=== PATIENT | female | born 1940 | race Hispanic/Latino ===

== ENCOUNTER 2016-10-28 15:42 | Inpatient (IN) | payer MEDICARE ==
--- NOTE | 2016-10-28 17:08 | Emergency Department Report ---
Chief Complaint: Abdominal Pain Stated Complaint: NAUSEA/DIARRHEA/ABD PAIN Time Seen by Provider: 10/28/16 17:04 - HPI History of Present Illness: Patient was referred to the ED by Dr. Stoddard for evaluation of abdominal pain and N/V/D that started approximately three weeks ago. Patient was seen and treated in the ED two weeks ago, symptoms resolved until last night when symptoms returned. - ROS Review of Systems: all other systems are unremarkable except for documentation in HPI - Exam Vital Signs: Vital Signs 10/28/16 15:53 Temperature 99.4 F Pulse Rate 89 Respiratory 20 Rate Blood Pressure 136/74 O2 Sat by Pulse 99 Oximetry Physical Exam: Gen: well developed and nourished, NAD Abd: soft, non-distended, bowel sounds present, tenderness LLQ , no rebound, guarding or rigid MSE screening note: Focused history and physical exam performed. Due to findings the following was ordered: laboratory and radiology studies ordered ED Disposition for MSE Condition: Stable Instructions: Abdominal Pain (ED)
[2016-10-28 17:59] LABS: Hematocrit 41.7 % (30.3-42.9); Hemoglobin 14.1 gm/dl (10.1-14.3); Mean Corpuscular HGB Conc 34 % (30-34); Mean Corpuscular Hemoglobin 30 pg (28-32); Mean Corpuscular Volume 87 fl (79-97); Platelet Count 234 K/mm3 (140-440); Red Cell Distribution Width 14.7 % (13.2-15.2)
[2016-10-28 18:20] LABS: White Blood Count 26.1 K/mm3 (4.5-11.0)
[2016-10-28 18:24] LABS: Albumin 3.9 g/dL (3.9-5); Albumin/Globulin Ratio 1.5 %; BUN/Creatinine Ratio 9.16; Bilirubin,Total 1.1 mg/dL (0.1-1.2); Calcium 8.8 mg/dL (8.4-10.2); Chloride 100.8 mmol/L (98-107); Potassium 3.6 mmol/L (3.6-5.0); Total Protein 6.5 g/dL (6.3-8.2)
[2016-10-28] MEDS ORDERED: NACL ONE (19:49)
[2016-10-28] MEDS ORDERED: VALIUM IV ONE (19:51)
[2016-10-28] MEDS ORDERED: NACL 0.9% 1000 ML 1,000 ML IV ONE (19:51)
[2016-10-28] MEDS ORDERED: ZOFRAN IV ONE (19:51)
[2016-10-28] MEDS ORDERED: SUBLIMAZE IV ONE ×2 (19:52→20:00)
[2016-10-28 20:08] LABS: Basophils % (Manual) 0 % (0.0-1.8); Blastocytes % (Manual) 0 %; Eosinophils % (Manual) 0 % (0.0-4.3)
[2016-10-28 20:09] LABS: Diff Status Complete; Platelet Estimate Consistent w Auto; RBC Morphology Normal
[2016-10-28 22:09] LABS: Bilirubin,Urine NEG (Negative); Blood,Urine NEG (Negative); Ketones,Urine 20 mg/dL (Negative); Leukocyte Esterase,Urine NEG (Negative); Mucus,Urine FEW /HPF; Nitrite,Urine NEG (Negative); Protein,Urine <15 mg/dL mg/dL (Negative); Urobilinogen,Urine < 2.0 mg/dL (<2.0)
--- NOTE | 2016-10-28 22:11 | Cat Scan Report ---
FINAL REPORT PROCEDURE: CT ABDOMEN PELVIS W CON TECHNIQUE: Computerized axial tomography of the abdomen and pelvis was performed after the IV injection of iodinated nonionic contrast. HISTORY: fever, generalized abdominal pain, s/p colitis COMPARISON: No prior studies are available for comparison. FINDINGS: Lower Lung waddell: Small amount of dependent atelectasis is visualized. Lung bases otherwise are unremarkable. Upper Abdomen: The gallbladder is surgically absent. The intrahepatic ducts are not distended. The liver is otherwise unremarkable. The pancreas and adrenal glands are unremarkable. The spleen is not enlarged. Kidneys, Ureters and Urinary bladder: No abnormalities are seen. Retroperitoneum: Atherosclerotic changes are seen in the abdominal aorta. No aneurysm is visualized. Nonspecific subcentimeter lymph nodes are seen in the retroperitoneum. No pathologically enlarged lymph nodes are identified. Bowel: Wall thickening is again visualized in the rectum and the sigmoid colon. This also involves the descending colon and now the transverse colon and right side of the colon. I cannot exclude pseudomembranous colitis given the extent of the abnormality. No evidence of bowel obstruction or ascites. There is no free intraperitoneal gas. Mild diverticulosis also seen in the sigmoid colon. Reproductive organs: Uterus is surgically absent. No abnormal adnexal masses are seen. Other: None IMPRESSION: Persistent wall thickening seen left side of the colon. This is now progressed and also involves the remainder of the transverse colon and the right side of the colon. Given the extent and progression suggest pseudomembranous colitis. Mild sigmoid diverticulosis. Prior cholecystectomy and hysterectomy.
[2016-10-28] MEDS ORDERED: VANCOMYCIN PO ONE (23:30)
[2016-10-28] MEDS ORDERED: BABY ASPIRIN PO ONE (23:34)
--- NOTE | 2016-10-28 23:34 | Emergency Department Report ---
HPI - General Chief Complaint: Abdominal Pain Time Seen by Provider: 10/28/16 19:51 - HPI HPI: The patient is a 75-year-old female who presents for evaluation of abdominal pain. The patient reports generalized acute abdominal pain since 1 AM last night, severe, not out of 10 in severity, sharp and squeezing in quality, and is exacerbated with straining secondary to bowel movements. She shares that she has also experienced multiple episodes of loose watery stools. She states that she was diagnosed with colitis 2 weeks ago for similar symptoms, and she was started on ciprofloxacin. The patient denies fever, chills, night sweats, blood in the stool, dark tarry stool, dysuria, hematuria, flank pain, genital discharge, inability to pass flatus. ED Past Medical Hx - Medications Home Medications: Home Medications Medication Instructions Recorded Confirmed Last Taken Type Canagliflozin [Invokana] 300 mg PO DAILY 10/29/16 10/29/16 10/28/16 History Olmesartan (Nf) [Benicar (Nf)] 20 mg PO QDAY 10/29/16 10/29/16 10/28/16 History ED Review of Systems ROS: Stated complaint: NAUSEA/DIARRHEA/ABD PAIN Other details as noted in HPI Constitutional: denies: fever ENT: denies: throat or neck pain Respiratory: denies: cough, shortness of breath Cardiovascular: denies: chest pain Endocrine: denies unexplained weight loss or gain Gastrointestinal: reports abdominal pain, nausea Genitourinary: denies: dysuria Musculoskeletal: denies: leg swelling Skin: denies: rash Neurological: denies: headache Hematological/Lymphatic: denies: easy bleeding or easy bruising Psych: denies sadness or hopelessness Physical Exam - Physical Exam Vital Signs: Vital Signs 10/28/16 10/28/16 10/28/16 15:53 19:49 20:35 Temperature 99.4 F 99.3 F Pulse Rate 89 80 Respiratory 20 16 14 Rate Blood Pressure 136/74 Blood Pressure 114/44 [Left] O2 Sat by Pulse 99 99 97 Oximetry Physical Exam: General: well-nourished, well-developed, no acute distress Head: Normocephalic, atraumatic Eyes: normal sclera ENT: Mucous membranes are pale and dry Neck: trachea midline, neck supple, No neck stiffness, no cervical adenopathy Respiratory: Breath sounds equal bilaterally, no wheezing, rales, or rhonchi Cardio: S1 and S2 present, no murmurs, rubs, gallops, capillary refill is delayed Abdomen: Normoactive bowel sounds, soft abdomen, generalized tenderness to palpation present, no rigidity, no guarding or rebound tenderness Chest WALL/Back: No tenderness to palpation of the chest wall, no CVA tenderness with percussion Musc: No pitting edema Skin: No rash Neuro: no facial drooping, normal speech Psych: Normal affect ED Course Vital Signs 10/28/16 10/28/16 10/28/16 15:53 19:49 20:35 Temperature 99.4 F 99.3 F Pulse Rate 89 80 Respiratory 20 16 14 Rate Blood Pressure 136/74 Blood Pressure 114/44 [Left] O2 Sat by Pulse 99 99 97 Oximetry ED Medical Decision Making - Lab Data Result diagrams: 10/28/16 17:46 10/28/16 17:46 - Medical Decision Making The patient was seen and examined by myself. The patient is placed on a manager monitoring and continuous pulse ox. On initial evaluation, the patient was found to be in no distress. Evaluation orders are placed. IV access is established and the patient is given 1 L normal saline fluid bolus, Zofran for nausea, and IV fentanyl for pain. Lab results revealed leukocytosis, WBC 26, and otherwise labs were non- concerning including hemoglobin, hematocrit, electrolytes, renal function, LFTs , lipase, and urinalysis. CAT scan of the abdomen revealed bowel wall thickening of the descending colon, worsening spreading to the sigmoid colon compared to previous CAT scan, and consistent with psuedomembranous colitis. The patient is administered vancomycin for treatment of suspected severe pseudomembranous colitis. The on-call hospitalist service was contacted. They agreed to admit the patient for further treatment and close monitoring. The ED admit order was placed. The patient was admitted in guarded condition. Critical care attestation.: If time is entered above; I have spent that time in minutes in the direct care of this critically ill patient, excluding procedure time. ED Disposition Clinical Impression: Pseudomembranous colitis, Dehydration, Acute generalized abdominal pain Sepsis Qualifiers: Sepsis type: sepsis due to unspecified organism Qualified Code(s): A41.9 - Sepsis, unspecified organism Disposition: OP ADMITTED IP TO THIS HOSP Is pt being admited?: Yes Does the pt Need Aspirin: Yes Condition: Stable Instructions: Abdominal Pain (ED) Referrals: HUYEN JASSO MD [Primary Care Provider] - 3-5 Days Time of Disposition: 22:34
[2016-10-29] MEDS ORDERED: TYLENOL PO PRN (00:41)
--- NOTE | 2016-10-29 00:48 | History and Physical Report ---
History of Present Illness Date of examination: 10/29/16 Chief complaint: Diarrhea History of present illness: Patient is a 75-year-old woman with a history of type 2 diabetes mellitus and hypertension who is currently being treated for infectious bacterial colitis with Cipro and Flagyl by Dr. Stoddard who developed worsening severe constant leaking diarrhea that started couple days ago associated with subjective fevers and chills and diffuse lower crampy intermittent nonradiating abdominal pains associated with nausea without vomiting. She took the Cipro for 10 days. Patient denies any chest pain, shortness breath, no cough, severe headaches. Medications and Allergies Allergies Allergy/AdvReac Type Severity Reaction Status Date / Time Penicillins Allergy Swelling Unverified 09/11/14 10:07 codeine AdvReac Seizure Unverified 09/11/14 10:08 Home Medications Medication Instructions Recorded Confirmed Last Taken Type Canagliflozin [Invokana] 300 mg PO DAILY 10/29/16 10/29/16 10/28/16 History Olmesartan (Nf) [Benicar (Nf)] 20 mg PO QDAY 10/29/16 10/29/16 10/28/16 History Active Meds: Active Medications Acetaminophen (Tylenol) 650 mg PO Q6H PRN PRN Reason: Non Cardiac Pain or Temp>100.5 Enoxaparin Sodium (Lovenox) 40 mg SUB-Q QDAY VINNY Metronidazole (Flagyl 500 Mg/100 Ml) 100 mls @ 100 mls/hr IV Q8HR VINNY Sodium Chloride (Nacl 0.9% 1000 Ml) 1,000 mls @ 100 mls/hr IV DIRECT VINNY Miscellaneous Medication (Canagliflozin [Invokana]) 300 mg PO DAILY VINNY Miscellaneous Medication (Olmesartan (Nf)) 20 mg PO QDAY VINNY Ondansetron HCl (Zofran) 4 mg IV Q4H PRN PRN Reason: Nausea And Vomiting Review of Systems All systems: negative (as HPI and all other ROS reviewed and negative.) Exam - Physical Exam Narrative exam: GEN: WDWN, NAD, AWAKE, ALERT, ORIENTATED 3 HEENT: NCAT, PERRL, EOMI, OP CLEAR NECK: SUPPLE, NO THYROMEGALY, NO JVD, NO LAD CVS: RRR, NORMAL S1S2 LUNGS/CHEST: CTA B, NORMAL CHEST EXPANSION B, GOOD AIR ENTRY B ABD: SOFT, NONDISTENDED, SUPRAPUBIC AND RIGHT QUADRANT TENDERNESS GBS, NO REBOUND OR GUARDING EXT/SKIN: NO SIGNIFICANT EDEMA OR RASH, mucous membranes dry MSK: FROM X 4 EXTREMITIES NEURO: CN 2-12 GROSSLY INTACT, NO FOCAL DEFICITS PSY: CALM - Constitutional Vitals: Temp Pulse Resp BP Pulse Ox 99.3 F 76 14 122/64 100 10/28/16 19:49 10/29/16 00:02 10/29/16 00:02 10/29/16 00:02 10/29/16 00:02 Results - Labs CBC & Chem 7: 10/28/16 17:46 10/28/16 17:46 Labs: Abnormal lab results 10/28/16 10/28/16 Range/Units 17:46 17:46 WBC 26.1 H (4.5-11.0) K/mm3 Seg Neuts % (Manual) 93.0 H (40.0-70.0) % Lymphocytes % (Manual) 4.0 L (13.4-35.0) % Seg Neutrophils # Man 24.3 H (1.8-7.7) K/mm3 Lymphocytes # (Manual) 1.0 L (1.2-5.4) K/mm3 Glucose 139 H (65-100) mg/dL Assessment and Plan Patient is a 75-year-old woman with a history of type 2 diabetes mellitus and hypertension who was treated for infectious bacterial colitis with Cipro and Flagyl by Dr. Stoddard who developed worsening severe constant leaking diarrhea that started couple days ago associated with subjective fevers, chills and diffuse lower crampy intermittent nonradiating abdominal pains associated with nausea without vomiting. He took the Cipro for 10 days. Patient denies any chest pain, shortness breath, no cough, severe headaches. CT abdomen and pelvis with IV contrast, 10/28/2016 : Persistent wall thickening seen in the left colon. This is new progressed and also falls remainder of the transverse colon and right sided colon. Given the extent and progression suggests pseudomembranous colitis, mild sigmoid diverticulosis, prior cholecystectomy and hysterectomy. 1. Early sepsis due to colitis: Antibiotics, IV fluids 2. Suspected pseudomembrane colitis: Treat with IV Flagyl 3. Type 2 diabetes mellitus, chronic: Add sliding-scale insulin 4. Hypertension, chronic: Continue to manage 5. DVT prophylaxis: SCDs and subcutaneous Lovenox Full code Disposition: Inpatient care
[2016-10-29] MEDS ORDERED: D50W (25GM) IV PRN (00:51)
--- NOTE | 2016-10-29 01:50 | Admit Criteria Form ---
Admission Criteria Documentation: ABDOMINAL PAIN Clinical Indications for Admission to Inpatient Care (Place 'X' for any and all applicable criteria): Admission is indicated for ANY ONE of the following(1)(2)(3)(4)(5): [X ]I. Inpatient admission required rather than observation care (Also use Abdominal Pain: Observation Care, as appropriate) because of ANY ONE of the following: [ ]a) Severe pain requiring acute inpatient management [X ]b) Identification of etiology/finding that requires inpatient care (eg, aortic dissection, free air) [ ]c) Absent bowel sounds with complete ileus(6) [ ]d) Suspected toxic megacolon [ ]e) Severe electrolyte abnormalities requiring inpatient care [ ]f) High fever or infection requiring inpatient admission as indicated by ANY ONE of following(7)(8): [ ] i) Appropriate outpatient or observational care antimicrobial treatment unavailable, not effective, or not feasible [ ] ii) Documented bacteremia [ ] iii) Temperature > 104.9 degrees F (oral) [ ] iv) T >103.1 F (oral) or < 96.8 F(rectal) that does not respond to all emergency treatment measures [ ]g) Signs of intestinal obstruction [B] [ ]h) Hemodynamic instability [ ]i) IV fluid to replace significant ongoing losses (greater than 3 L/m2 per day) (12)(13) [ ]j) Percutaneous or open drainage (eg, abscess, biliary tract ) procedures [ ]k) Parenteral nutrition regimen that must be implemented on inpatient basis [ ]l) Other condition,treatment or monitoring requiring inpatient admission. [ ]II. Peritoneal signs present [ ]III. Surgery needed that cannot be performed on an ambulatory basis. [ ]IV. Evaluation requires patient to not eat or drink for extended period ( eg, more than 24 hours). [ ]V. Contraindications and/or Inappropriate clinical situations for Observational Care in patients with abdominal pain, when ANY ONE of the following is required: [ ]a) Thorough evaluation is required to prevent catastrophic events due to delays in diagnosing (e.g.Mesenteric ischemia) 1,3 [ ]b) Patient with severe pathology or with chronic symptoms unlikely to improve in the ED stay (3) [X ]. General contraindications and/or Inappropriate clinical situations for Observational Care in patients with abdominal pain, when ANY ONE of the following is required: [X ]a) Prediction of prolongation of LOS based on ANY ONE of the following may be considered as a contraindication for observational care 2, 3, 4, 5, 6, 7, 8, 9, 10, 11 [X ]i) Age > 65 yrs. [ ]ii) Patient arriving by ambulance [ ]iii) Patient with high acuity [ ]iv) Patient requiring vital sign monitoring [ ]v) Patient on IV medication [ ]b) Systolic blood pressures 180mmHg 3,12 [ ]c) Patient with altered mental status including delirium and other alteration of consciousness, (3) [ ]d) Patient whose discharge disposition will be to a fpc home or rehabilitation home should not be managed in Emergency Department Observation Unit. CMS rule requires 3 days hospital stay before such placement.3,13 [ ]e) Patient with failure to thrive due to broad array of etiologies 3,16,17 [ ]f) Inability to ambulate 3,14 Extended stay beyond goal length of stay may be needed for(2)(3): [ ]a) Persistent abdominal pain with suspected intra-abdominal process [ ]b) Diagnosed condition requiring continued stay (e.g., pancreatitis, complicated diverticulitis) [ ]c) Surgery (e.g., colectomy) The original [email or web address] content created by [employer] has been revised. The portions of the content which have been revised are identified through the use of italic text or in bold, and [facility] has neither reviewed nor approved the modified material.All other unmodified content is copyright [email or web address]. Please see references footnoted in the original [facility] edition 2016 Admission Criteria Met: Yes
[2016-10-29] MEDS: FLAGYL 500 MG/100 ML 100 ML IV SCH ×2 (02:34→11:15)
[2016-10-29 06:19] LABS: Hematocrit 36.6 % (30.3-42.9); Hemoglobin 12.3 gm/dl (10.1-14.3); Mean Corpuscular HGB Conc 34 % (30-34); Mean Corpuscular Hemoglobin 30 pg (28-32); Mean Corpuscular Volume 89 fl (79-97); Platelet Count 195 K/mm3 (140-440); Red Blood Count 4.13 M/mm3 (3.65-5.03); White Blood Count 18.6 K/mm3 (4.5-11.0)
[2016-10-29 06:39] LABS: Calcium 8.1 mg/dL (8.4-10.2); Chloride 105.2 mmol/L (98-107); Potassium 3.4 mmol/L (3.6-5.0)
[2016-10-29] MEDS: NOVOLOG SUB-Q SCH ×3 (08:17→18:36)
[2016-10-29] MEDS ORDERED: NON-FORMULARY (Canagliflozin [Invokana] 300 MG) PO SCH (10:00)
[2016-10-29] MEDS: NACL 0.9% 1000 ML 1,000 ML IV SCH (11:15)
[2016-10-29] MEDS: COZAAR PO SCH (11:15)
[2016-10-29] MEDS: ZOFRAN IV PRN (14:12)
--- NOTE | 2016-10-29 17:02 | Event Note ---
Date: 10/29/16 Patient is admitted for pseudomembranous colitis. She is on Flagyl. GI consult is placed. Patient is doing well.
--- NOTE | 2016-10-29 21:16 | Gastroenterology Consultation ---
History of Present Illness - Reason for Consult Consult date: 10/29/16 diarrhea, colitis Requesting physician: RAMON GARCIA - History of Present Illness Ms Oconnor is a 75 yo female who presents with worsening lower abdominal cramping and diarrhea x 3 weeks. She was initially started on cipro/flagyl as outpatient 3 weeks ago for suspected infectious colitis. She was having 5+ bm' s at the time. She completed 1 week of treatment with mild improvement in symptoms, but has worsened over the last 2 days. She has cramp like lower abdominal pain which waxes and wanes. She had significant/numerous diarrhea episodes yesterday and today. CT scan was performed showing extensive colitis suspicious for pseudomembrane colitis. Past History Past Medical History: diabetes, hypertension Past Surgical History: appendectomy, cholecystectomy Social history: no significant social history Family history: no significant family history Medications and Allergies Allergies Allergy/AdvReac Type Severity Reaction Status Date / Time Penicillins Allergy Swelling Verified 10/29/16 10:09 promethazine HCl Allergy Unknown Verified 10/29/16 10:09 [From Phenergan] codeine AdvReac Seizure Verified 10/29/16 10:09 Home Medications Medication Instructions Recorded Confirmed Last Taken Type Canagliflozin [Invokana] 300 mg PO DAILY 10/29/16 10/29/16 10/28/16 History Olmesartan (Nf) [Benicar (Nf)] 20 mg PO QDAY 10/29/16 10/29/16 10/28/16 History Active Meds: Active Medications Acetaminophen (Tylenol) 650 mg PO Q6H PRN PRN Reason: Non Cardiac Pain or Temp>100.5 Dextrose (D50w (25gm)) 50 ml IV PRN PRN PRN Reason: Hypoglycemia Enoxaparin Sodium (Lovenox) 40 mg SUB-Q QDAY VINNY Metronidazole (Flagyl 500 Mg/100 Ml) 100 mls @ 100 mls/hr IV Q8H VINNY Last Admin: 10/29/16 11:15 Dose: 100 mls/hr Sodium Chloride (Nacl 0.9% 1000 Ml) 1,000 mls @ 100 mls/hr IV DIRECT VINNY Last Admin: 10/29/16 11:15 Dose: 100 mls/hr Insulin Aspart (Novolog) 0 units SUB-Q ACHS VINNY PRN Reason: Protocol Last Admin: 10/29/16 18:36 Dose: Not Given Losartan Potassium (Cozaar) 50 mg PO QDAY [facility] Last Admin: 10/29/16 11:15 Dose: Not Given Miscellaneous Medication (Canagliflozin [Invokana]) 300 mg PO DAILY [facility] Last Admin: 10/29/16 12:19 Dose: Not Given Ondansetron HCl (Zofran) 4 mg IV Q4H PRN PRN Reason: Nausea And Vomiting Last Admin: 10/29/16 14:12 Dose: 4 mg Vancomycin HCl (Vancomycin) 250 mg PO Q6HR [facility] Review of Systems - Review of Systems All systems: negative Constitutional: weight loss Gastrointestinal: nausea Exam - Constitutional Vital Signs: Temp Pulse Resp BP Pulse Ox 98.2 F 70 20 121/59 99 10/29/16 18:00 10/29/16 18:00 10/29/16 18:00 10/29/16 18:00 10/29/16 18:00 General appearance: no acute distress - EENT Eyes: PERRL, EOM intact ENT: hearing intact - Respiratory Respiratory effort: normal Respiratory: bilateral: CTA - Cardiovascular Rhythm: regular Heart Sounds: Present: S1 & S2 Extremities: No edema, Full ROM - Gastrointestinal General gastrointestinal: Present: soft (mild lower quadrant ttp, no rebound/ guarding), non-distended, normal bowel sounds - Neurologic Neurological: alert and oriented x3 - Psychiatric Psychiatric: appropriate mood/affect - Labs CBC & Chem 7: 10/29/16 05:44 10/29/16 05:44 Lab Results: Laboratory Results - last 24 hr 10/29/16 10/29/16 10/29/16 05:44 05:44 08:08 WBC 18.6 H RBC 4.13 Hgb 12.3 Hct 36.6 MCV 89 MCH 30 MCHC 34 RDW 15.0 Plt Count 195 Sodium 144 Potassium 3.4 L Chloride 105.2 Carbon Dioxide 24 Anion Gap 18 BUN 12 Creatinine 1.0 Estimated GFR 54 BUN/Creatinine Ratio 12.00 Glucose 101 H POC Glucose 93 Calcium 8.1 L 10/29/16 10/29/16 11:11 17:57 WBC RBC Hgb Hct MCV MCH MCHC RDW Plt Count Sodium Potassium Chloride Carbon Dioxide Anion Gap BUN Creatinine Estimated GFR BUN/Creatinine Ratio Glucose POC Glucose 135 H 134 H Calcium - Imaging CT Scan: report reviewed Assessment and Plan colitis with diarrhea - suspect infectious, with high suspicion for c diff given CT findings, high wbc count, and recent antibiotic use. Would categorize as severe c diff given CT findings and abdominal pain. Will start po vanc, cont IV flagyl, monitor abdominal exam and labs.
[2016-10-30] MEDS: NACL 0.9% 1000 ML 1,000 ML IV SCH ×2 (00:13→12:00)
[2016-10-30] MEDS: VANCOMYCIN PO SCH ×5 (00:16→18:28)
[2016-10-30] MEDS: NOVOLOG SUB-Q SCH ×4 (00:17→17:32)
[2016-10-30] MEDS: FLAGYL 500 MG/100 ML 100 ML IV SCH ×4 (00:34→18:29)
[2016-10-30] MEDS: LOVENOX SUB-Q SCH ×2 (00:38→10:00)
[2016-10-30 07:42] LABS: Basophils % (Auto) 0.9 % (0.0-1.8); Eosinophils % (Auto) 2.8 % (0.0-4.3); Hematocrit 35.8 % (30.3-42.9); Hemoglobin 12.2 gm/dl (10.1-14.3); Mean Corpuscular HGB Conc 34 % (30-34); Mean Corpuscular Hemoglobin 30 pg (28-32); Mean Corpuscular Volume 87 fl (79-97); Platelet Count 193 K/mm3 (140-440); Red Blood Count 4.13 M/mm3 (3.65-5.03); Red Cell Distribution Width 14.8 % (13.2-15.2); White Blood Count 7.3 K/mm3 (4.5-11.0)
[2016-10-30 07:57] LABS: Anion Gap 16 mmol/L; Blood Urea Nitrogen 8 mg/dL (7-17); Calcium 7.7 mg/dL (8.4-10.2); Carbon Dioxide 23 mmol/L (22-30); Chloride 109.2 mmol/L (98-107); Glucose 101 mg/dL (65-100); Potassium 3.2 mmol/L (3.6-5.0); Sodium 145 mmol/L (137-145)
--- NOTE | 2016-10-30 08:05 | Progress Note ---
Assessment and Plan Assessment and plan: Severe C. difficile with pseudomembranous colitis - Patient is on IV Flagyl and by mouth vancomycin - Patient showed improvement - GI consult appreciated - We will follow closely DVT prophylaxis - Lovenox GI prophylaxis - PPI Disposition - Continue inpatient care History Interval history: Patient diarrhea and abdominal pain is getting better. Hospitalist Physical - Physical exam Narrative exam: Not in cardiopulmonary distress. The patient appeared well nourished and normally developed. Vital signs as documented. Head exam is unremarkable. No scleral icterus . Neck is without jugular venous distension, thyromegaly, or carotid bruits. Lungs are clear to auscultation. Cardiac exam reveals regular rate and Rhythm. First and second heart sounds normal. No murmurs, rubs or gallops. Abdominal exam reveals normal bowel sounds, no masses, no organomegaly and no aortic enlargement. Extremities are nonedematous and both femoral and pedal pulses are normal. 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 No focal weakness. - Constitutional Vitals: Temp Pulse Resp BP Pulse Ox 98.5 F 73 18 115/58 97 10/29/16 22:34 10/29/16 22:34 10/29/16 22:34 10/29/16 22:34 10/29/16 22:34 Results - Labs CBC & Chem 7: 10/30/16 06:58 10/30/16 06:58 Labs: Laboratory Last Values WBC 7.3 K/mm3 (4.5-11.0) 10/30/16 06:58 RBC 4.13 M/mm3 (3.65-5.03) 10/30/16 06:58 Hgb 12.2 gm/dl (10.1-14.3) 10/30/16 06:58 Hct 35.8 % (30.3-42.9) 10/30/16 06:58 MCV 87 fl (79-97) 10/30/16 06:58 MCH 30 pg (28-32) 10/30/16 06:58 MCHC 34 % (30-34) 10/30/16 06:58 RDW 14.8 % (13.2-15.2) 10/30/16 06:58 Plt Count 193 K/mm3 (140-440) 10/30/16 06:58 Lymph % (Auto) 16.9 % (13.4-35.0) 10/30/16 06:58 [place] % (Auto) 8.9 % (0.0-7.3) H 10/30/16 06:58 Eos % (Auto) 2.8 % (0.0-4.3) 10/30/16 06:58 Baso % (Auto) 0.9 % (0.0-1.8) 10/30/16 06:58 Lymph # 1.2 K/mm3 (1.2-5.4) 10/30/16 06:58 [place] # 0.7 K/mm3 (0.0-0.8) 10/30/16 06:58 Eos # 0.2 K/mm3 (0.0-0.4) 10/30/16 06:58 Baso # 0.1 K/mm3 (0.0-0.1) 10/30/16 06:58 Add Manual Diff Complete 10/28/16 17:46 Total Counted 100 10/28/16 17:46 Seg Neutrophils % 70.5 % (40.0-70.0) H 10/30/16 06:58 Seg Neuts % (Manual) 93.0 % (40.0-70.0) H 10/28/16 17:46 Band Neutrophils % 0 % 10/28/16 17:46 Lymphocytes % (Manual) 4.0 % (13.4-35.0) L 10/28/16 17:46 Reactive Lymphs % (Man) 0 % 10/28/16 17:46 Monocytes % (Manual) 3.0 % (0.0-7.3) 10/28/16 17:46 Eosinophils % (Manual) 0 % (0.0-4.3) 10/28/16 17:46 Basophils % (Manual) 0 % (0.0-1.8) 10/28/16 17:46 Metamyelocytes % 0 % 10/28/16 17:46 Myelocytes % 0 % 10/28/16 17:46 Promyelocytes % 0 % 10/28/16 17:46 Blast Cells % 0 % 10/28/16 17:46 Nucleated RBC % Not Reportable 10/28/16 17:46 Seg Neutrophils # 5.2 K/mm3 (1.8-7.7) 10/30/16 06:58 Seg Neutrophils # Man 24.3 K/mm3 (1.8-7.7) H 10/28/16 17:46 Band Neutrophils # 0.0 K/mm3 10/28/16 17:46 Lymphocytes # (Manual) 1.0 K/mm3 (1.2-5.4) L 10/28/16 17:46 Abs React Lymphs (Man) 0.0 K/mm3 10/28/16 17:46 Monocytes # (Manual) 0.8 K/mm3 (0.0-0.8) 10/28/16 17:46 Eosinophils # (Manual) 0.0 K/mm3 (0.0-0.4) 10/28/16 17:46 Basophils # (Manual) 0.0 K/mm3 (0.0-0.1) 10/28/16 17:46 Metamyelocytes # 0.0 K/mm3 10/28/16 17:46 Myelocytes # 0.0 K/mm3 10/28/16 17:46 Promyelocytes # 0.0 K/mm3 10/28/16 17:46 Blast Cells # 0.0 K/mm3 10/28/16 17:46 WBC Morphology Not Reportable 10/28/16 17:46 Hypersegmented Neuts Not Reportable 10/28/16 17:46 Hyposegmented Neuts Not Reportable 10/28/16 17:46 Hypogranular Neuts Not Reportable 10/28/16 17:46 Smudge Cells Not Reportable 10/28/16 17:46 Toxic Granulation Not Reportable 10/28/16 17:46 Toxic Vacuolation Not Reportable 10/28/16 17:46 Dohle Bodies Not Reportable 10/28/16 17:46 Pelger-Huet Anomaly Not Reportable 10/28/16 17:46 Ata Rods Not Reportable 10/28/16 17:46 Platelet Estimate Consistent w auto 10/28/16 17:46 Clumped Platelets Not Reportable 10/28/16 17:46 Plt Clumps, EDTA Not Reportable 10/28/16 17:46 Large Platelets Not Reportable 10/28/16 17:46 Giant Platelets Not Reportable 10/28/16 17:46 Platelet Satelliting Not Reportable 10/28/16 17:46 Plt Morphology Comment Not Reportable 10/28/16 17:46 RBC Morphology Normal 10/28/16 17:46 Dimorphic RBCs Not Reportable 10/28/16 17:46 Polychromasia Not Reportable 10/28/16 17:46 Hypochromasia Not Reportable 10/28/16 17:46 Poikilocytosis Not Reportable 10/28/16 17:46 Anisocytosis Not Reportable 10/28/16 17:46 Microcytosis Not Reportable 10/28/16 17:46 Macrocytosis Not Reportable 10/28/16 17:46 Spherocytes Not Reportable 10/28/16 17:46 Pappenheimer Bodies Not Reportable 10/28/16 17:46 Sickle Cells Not Reportable 10/28/16 17:46 Target Cells Not Reportable 10/28/16 17:46 Tear Drop Cells Not Reportable 10/28/16 17:46 Ovalocytes Not Reportable 10/28/16 17:46 Helmet Cells Not Reportable 10/28/16 17:46 Patel-[place] Bodies Not Reportable 10/28/16 17:46 [place] Rings Not Reportable 10/28/16 17:46 Steve Cells Not Reportable 10/28/16 17:46 Bite Cells Not Reportable 10/28/16 17:46 Crenated Cell Not Reportable 10/28/16 17:46 Elliptocytes Not Reportable 10/28/16 17:46 Acanthocytes (Spur) Not Reportable 10/28/16 17:46 Rouleaux Not Reportable 10/28/16 17:46 Hemoglobin C Crystals Not Reportable 10/28/16 17:46 Schistocytes Not Reportable 10/28/16 17:46 Malaria parasites Not Reportable 10/28/16 17:46 [place]olo Bodies Not Reportable 10/28/16 17:46 Hem Pathologist Commnt No 10/28/16 17:46 Sodium 145 mmol/L (137-145) 10/30/16 06:58 Potassium 3.2 mmol/L (3.6-5.0) L 10/30/16 06:58 Chloride 109.2 mmol/L (98-107) H 10/30/16 06:58 Carbon Dioxide 23 mmol/L (22-30) 10/30/16 06:58 Anion Gap 16 mmol/L 10/30/16 06:58 BUN 8 mg/dL (7-17) 10/30/16 06:58 Creatinine 0.8 mg/dL (0.7-1.2) 10/30/16 06:58 Estimated GFR > 60 ml/min 10/30/16 06:58 BUN/Creatinine Ratio 10.00 % 10/30/16 06:58 Glucose 101 mg/dL (65-100) H 10/30/16 06:58 POC Glucose 103 (70-105) 10/30/16 06:29 Lactic Acid 1.0 mmol/L (0.7-2.0) 10/28/16 19:54 Calcium 7.7 mg/dL (8.4-10.2) L 10/30/16 06:58 Total Bilirubin 1.1 mg/dL (0.1-1.2) 10/28/16 17:46 AST 16 units/L (5-40) 10/28/16 17:46 ALT 14 units/L (7-56) 10/28/16 17:46 Alkaline Phosphatase 59 units/L (35-129) 10/28/16 17:46 NT-Pro-B Natriuret Pep 891.8 pg/mL (0-900) 10/28/16 19:54 Total Protein 6.5 g/dL (6.3-8.2) 10/28/16 17:46 Albumin 3.9 g/dL (3.9-5) 10/28/16 17:46 Albumin/Globulin Ratio 1.5 % 10/28/16 17:46 Lipase 36 units/L (13-60) 10/28/16 17:46 Urine Color Yellow (Yellow) 10/28/16 21:43 Urine Turbidity Clear (Clear) 10/28/16 21:43 Urine pH 5.0 (5.0-7.0) 10/28/16 21:43 Urine Protein <15 mg/dl mg/dL (Negative) 10/28/16 21:43 Urine Glucose (UA) >=500 mg/dL (Negative) 10/28/16 21:43 Urine Ketones 20 mg/dL (Negative) 10/28/16 21:43 Urine Blood Neg (Negative) 10/28/16 21:43 Urine Nitrite Neg (Negative) 10/28/16 21:43 Urine Bilirubin Neg (Negative) 10/28/16 21:43 Urine Urobilinogen < 2.0 mg/dL (<2.0) 10/28/16 21:43 Ur Leukocyte Esterase Neg (Negative) 10/28/16 21:43 Urine WBC (Auto) 6.0 /HPF (0.0-6.0) 10/28/16 21:43 Urine RBC (Auto) 3.0 /HPF (0.0-6.0) 10/28/16 21:43 U Epithel Cells (Auto) 5.0 /HPF (0-13.0) 10/28/16 21:43 Amorphous Crystals Few 10/28/16 21:43 Urine Mucus Few /HPF 10/28/16 21:43 WBC trended down from 18-7.3
[2016-10-30] MEDS: PROTONIX PO SCH (10:00)
[2016-10-30] MEDS: COZAAR PO SCH (10:05)
--- NOTE | 2016-10-30 20:24 | Gastroenterology Progress Note ---
Assessment and Plan c diff colitis - wbc normalized, lactate normal on admission. diarrhea improving, pt still feels weak and has decreased appetite. cont po vanc, hopefully she will continue to improve and can finish course of treatment at home. will cont to follow. Subjective Date of service: 10/30/16 Principal diagnosis: c diff colitis Interval history: pt reports improvement in diarrhea since admission. still c/o of lower abdominal cramping. Feels weak. Has tolerated some oral intake today. Objective - Constitutional Vitals: Temp Pulse Resp BP Pulse Ox 98.2 F 67 15 119/59 99 10/30/16 15:45 10/30/16 15:45 10/30/16 15:45 10/30/16 15:45 10/30/16 15:45 General appearance: no acute distress - EENT Eyes: EOM intact ENT: hearing intact - Respiratory Respiratory effort: normal Respiratory: bilateral: CTA - Cardiovascular Rhythm: regular Heart Sounds: Present: S1 & S2 - Extremities Extremities: No edema - Gastrointestinal General gastrointestinal: Present: soft (mild lower abdominal ttp), non- distended, normal bowel sounds - Neurologic Neurological: alert and oriented x3 - Psychiatric Psychiatric: appropriate mood/affect - Labs CBC & Chem 7: 10/30/16 06:58 10/30/16 06:58 Labs: Laboratory Results - last 24 hr 10/29/16 10/30/16 10/30/16 23:05 06:29 06:58 WBC 7.3 RBC 4.13 Hgb 12.2 Hct 35.8 MCV 87 MCH 30 MCHC 34 RDW 14.8 Plt Count 193 Lymph % (Auto) 16.9 [place] % (Auto) 8.9 H Eos % (Auto) 2.8 Baso % (Auto) 0.9 Lymph # 1.2 [place] # 0.7 Eos # 0.2 Baso # 0.1 Seg Neutrophils % 70.5 H Seg Neutrophils # 5.2 Sodium Potassium Chloride Carbon Dioxide Anion Gap BUN Creatinine Estimated GFR BUN/Creatinine Ratio Glucose POC Glucose 104 103 Calcium 10/30/16 10/30/16 10/30/16 06:58 12:16 16:47 WBC RBC Hgb Hct MCV MCH MCHC RDW Plt Count Lymph % (Auto) [place] % (Auto) Eos % (Auto) Baso % (Auto) Lymph # [place] # Eos # Baso # Seg Neutrophils % Seg Neutrophils # Sodium 145 Potassium 3.2 L Chloride 109.2 H Carbon Dioxide 23 Anion Gap 16 BUN 8 Creatinine 0.8 Estimated GFR > 60 BUN/Creatinine Ratio 10.00 Glucose 101 H POC Glucose 107 H 111 H Calcium 7.7 L - Imaging CT scan: report reviewed
[2016-10-30] MEDS ORDERED: LOVENOX SUB-Q SCH (22:00)
[2016-10-31] MEDS: VANCOMYCIN PO SCH ×4 (00:26→17:50)
[2016-10-31] MEDS: NACL 0.9% 1000 ML 1,000 ML IV SCH ×2 (00:26→12:01)
[2016-10-31] MEDS: NOVOLOG SUB-Q SCH ×4 (00:27→17:50)
[2016-10-31] MEDS: FLAGYL 500 MG/100 ML 100 ML IV SCH ×3 (03:11→17:50)
--- NOTE | 2016-10-31 08:37 | Progress Note ---
Assessment and Plan Assessment and plan: Severe C. difficile with pseudomembranous colitis - Patient is on IV Flagyl and by mouth vancomycin - Patient showed improvement - GI consult appreciated - We will follow closely - Tolerate by mouth intake - C diff positive by PCR Hypokalemia - Repleted - We'll check BMP DVT prophylaxis - Lovenox GI prophylaxis - PPI Disposition - Continue inpatient care Disposition Plan: likely to be discharged tomorrow History Interval history: Patient diarrhea and abdominal pain is getting better. Patient complains weakness, tolerate po. Hospitalist Physical - Physical exam Narrative exam: Not in cardiopulmonary distress. The patient appeared well nourished and normally developed. Vital signs as documented. Head exam is unremarkable. No scleral icterus . Neck is without jugular venous distension, thyromegaly, or carotid bruits. Lungs are clear to auscultation. Cardiac exam reveals regular rate and Rhythm. First and second heart sounds normal. No murmurs, rubs or gallops. Abdominal exam reveals normal bowel sounds, no masses, no organomegaly and no aortic enlargement. Extremities are nonedematous and both femoral and pedal pulses are normal. 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 No focal weakness. - Constitutional Vitals: Temp Pulse Resp BP Pulse Ox 98.4 F 70 20 129/60 97 10/30/16 23:00 10/30/16 23:00 10/31/16 06:30 10/30/16 23:00 10/30/16 23:00 Results - Labs CBC & Chem 7: 10/30/16 06:58 10/30/16 06:58 Labs: Laboratory Last Values WBC 7.3 K/mm3 (4.5-11.0) 10/30/16 06:58 RBC 4.13 M/mm3 (3.65-5.03) 10/30/16 06:58 Hgb 12.2 gm/dl (10.1-14.3) 10/30/16 06:58 Hct 35.8 % (30.3-42.9) 10/30/16 06:58 MCV 87 fl (79-97) 10/30/16 06:58 MCH 30 pg (28-32) 10/30/16 06:58 MCHC 34 % (30-34) 10/30/16 06:58 RDW 14.8 % (13.2-15.2) 10/30/16 06:58 Plt Count 193 K/mm3 (140-440) 10/30/16 06:58 Lymph % (Auto) 16.9 % (13.4-35.0) 10/30/16 06:58 [place] % (Auto) 8.9 % (0.0-7.3) H 10/30/16 06:58 Eos % (Auto) 2.8 % (0.0-4.3) 10/30/16 06:58 Baso % (Auto) 0.9 % (0.0-1.8) 10/30/16 06:58 Lymph # 1.2 K/mm3 (1.2-5.4) 10/30/16 06:58 [place] # 0.7 K/mm3 (0.0-0.8) 10/30/16 06:58 Eos # 0.2 K/mm3 (0.0-0.4) 10/30/16 06:58 Baso # 0.1 K/mm3 (0.0-0.1) 10/30/16 06:58 Add Manual Diff Complete 10/28/16 17:46 Total Counted 100 10/28/16 17:46 Seg Neutrophils % 70.5 % (40.0-70.0) H 10/30/16 06:58 Seg Neuts % (Manual) 93.0 % (40.0-70.0) H 10/28/16 17:46 Band Neutrophils % 0 % 10/28/16 17:46 Lymphocytes % (Manual) 4.0 % (13.4-35.0) L 10/28/16 17:46 Reactive Lymphs % (Man) 0 % 10/28/16 17:46 Monocytes % (Manual) 3.0 % (0.0-7.3) 10/28/16 17:46 Eosinophils % (Manual) 0 % (0.0-4.3) 10/28/16 17:46 Basophils % (Manual) 0 % (0.0-1.8) 10/28/16 17:46 Metamyelocytes % 0 % 10/28/16 17:46 Myelocytes % 0 % 10/28/16 17:46 Promyelocytes % 0 % 10/28/16 17:46 Blast Cells % 0 % 10/28/16 17:46 Nucleated RBC % Not Reportable 10/28/16 17:46 Seg Neutrophils # 5.2 K/mm3 (1.8-7.7) 10/30/16 06:58 Seg Neutrophils # Man 24.3 K/mm3 (1.8-7.7) H 10/28/16 17:46 Band Neutrophils # 0.0 K/mm3 10/28/16 17:46 Lymphocytes # (Manual) 1.0 K/mm3 (1.2-5.4) L 10/28/16 17:46 Abs React Lymphs (Man) 0.0 K/mm3 10/28/16 17:46 Monocytes # (Manual) 0.8 K/mm3 (0.0-0.8) 10/28/16 17:46 Eosinophils # (Manual) 0.0 K/mm3 (0.0-0.4) 10/28/16 17:46 Basophils # (Manual) 0.0 K/mm3 (0.0-0.1) 10/28/16 17:46 Metamyelocytes # 0.0 K/mm3 10/28/16 17:46 Myelocytes # 0.0 K/mm3 10/28/16 17:46 Promyelocytes # 0.0 K/mm3 10/28/16 17:46 Blast Cells # 0.0 K/mm3 10/28/16 17:46 WBC Morphology Not Reportable 10/28/16 17:46 Hypersegmented Neuts Not Reportable 10/28/16 17:46 Hyposegmented Neuts Not Reportable 10/28/16 17:46 Hypogranular Neuts Not Reportable 10/28/16 17:46 Smudge Cells Not Reportable 10/28/16 17:46 Toxic Granulation Not Reportable 10/28/16 17:46 Toxic Vacuolation Not Reportable 10/28/16 17:46 Dohle Bodies Not Reportable 10/28/16 17:46 Pelger-Huet Anomaly Not Reportable 10/28/16 17:46 Ata Rods Not Reportable 10/28/16 17:46 Platelet Estimate Consistent w auto 10/28/16 17:46 Clumped Platelets Not Reportable 10/28/16 17:46 Plt Clumps, EDTA Not Reportable 10/28/16 17:46 Large Platelets Not Reportable 10/28/16 17:46 Giant Platelets Not Reportable 10/28/16 17:46 Platelet Satelliting Not Reportable 10/28/16 17:46 Plt Morphology Comment Not Reportable 10/28/16 17:46 RBC Morphology Normal 10/28/16 17:46 Dimorphic RBCs Not Reportable 10/28/16 17:46 Polychromasia Not Reportable 10/28/16 17:46 Hypochromasia Not Reportable 10/28/16 17:46 Poikilocytosis Not Reportable 10/28/16 17:46 Anisocytosis Not Reportable 10/28/16 17:46 Microcytosis Not Reportable 10/28/16 17:46 Macrocytosis Not Reportable 10/28/16 17:46 Spherocytes Not Reportable 10/28/16 17:46 Pappenheimer Bodies Not Reportable 10/28/16 17:46 Sickle Cells Not Reportable 10/28/16 17:46 Target Cells Not Reportable 10/28/16 17:46 Tear Drop Cells Not Reportable 10/28/16 17:46 Ovalocytes Not Reportable 10/28/16 17:46 Helmet Cells Not Reportable 10/28/16 17:46 Patel-[place] Bodies Not Reportable 10/28/16 17:46 [place] Rings Not Reportable 10/28/16 17:46 Steve Cells Not Reportable 10/28/16 17:46 Bite Cells Not Reportable 10/28/16 17:46 Crenated Cell Not Reportable 10/28/16 17:46 Elliptocytes Not Reportable 10/28/16 17:46 Acanthocytes (Spur) Not Reportable 10/28/16 17:46 Rouleaux Not Reportable 10/28/16 17:46 Hemoglobin C Crystals Not Reportable 10/28/16 17:46 Schistocytes Not Reportable 10/28/16 17:46 Malaria parasites Not Reportable 10/28/16 17:46 Bartolo Bodies Not Reportable 10/28/16 17:46 Hem Pathologist Commnt No 10/28/16 17:46 Sodium 145 mmol/L (137-145) 10/30/16 06:58 Potassium 3.2 mmol/L (3.6-5.0) L 10/30/16 06:58 Chloride 109.2 mmol/L (98-107) H 10/30/16 06:58 Carbon Dioxide 23 mmol/L (22-30) 10/30/16 06:58 Anion Gap 16 mmol/L 10/30/16 06:58 BUN 8 mg/dL (7-17) 10/30/16 06:58 Creatinine 0.8 mg/dL (0.7-1.2) 10/30/16 06:58 Estimated GFR > 60 ml/min 10/30/16 06:58 BUN/Creatinine Ratio 10.00 % 10/30/16 06:58 Glucose 101 mg/dL (65-100) H 10/30/16 06:58 POC Glucose 83 (70-105) 10/31/16 06:36 Lactic Acid 1.0 mmol/L (0.7-2.0) 10/28/16 19:54 Calcium 7.7 mg/dL (8.4-10.2) L 10/30/16 06:58 Total Bilirubin 1.1 mg/dL (0.1-1.2) 10/28/16 17:46 AST 16 units/L (5-40) 10/28/16 17:46 ALT 14 units/L (7-56) 10/28/16 17:46 Alkaline Phosphatase 59 units/L (35-129) 10/28/16 17:46 NT-Pro-B Natriuret Pep 891.8 pg/mL (0-900) 10/28/16 19:54 Total Protein 6.5 g/dL (6.3-8.2) 10/28/16 17:46 Albumin 3.9 g/dL (3.9-5) 10/28/16 17:46 Albumin/Globulin Ratio 1.5 % 10/28/16 17:46 Lipase 36 units/L (13-60) 10/28/16 17:46 Urine Color Yellow (Yellow) 10/28/16 21:43 Urine Turbidity Clear (Clear) 10/28/16 21:43 Urine pH 5.0 (5.0-7.0) 10/28/16 21:43 Urine Protein <15 mg/dl mg/dL (Negative) 10/28/16 21:43 Urine Glucose (UA) >=500 mg/dL (Negative) 10/28/16 21:43 Urine Ketones 20 mg/dL (Negative) 10/28/16 21:43 Urine Blood Neg (Negative) 10/28/16 21:43 Urine Nitrite Neg (Negative) 10/28/16 21:43 Urine Bilirubin Neg (Negative) 10/28/16 21:43 Urine Urobilinogen < 2.0 mg/dL (<2.0) 10/28/16 21:43 Ur Leukocyte Esterase Neg (Negative) 10/28/16 21:43 Urine WBC (Auto) 6.0 /HPF (0.0-6.0) 10/28/16 21:43 Urine RBC (Auto) 3.0 /HPF (0.0-6.0) 10/28/16 21:43 U Epithel Cells (Auto) 5.0 /HPF (0-13.0) 10/28/16 21:43 Amorphous Crystals Few 10/28/16 21:43 Urine Mucus Few /HPF 10/28/16 21:43 Hypokalemia
[2016-10-31] MEDS: COZAAR PO SCH (10:12)
[2016-10-31] MEDS: PROTONIX PO SCH (10:13)
[2016-10-31] MEDS: LOVENOX SUB-Q SCH (10:13)
[2016-10-31] MEDS: K-DUR PO ONE ×2 (10:19→10:48)
[2016-10-31] MEDS ORDERED: K-DUR PO ONE (11:00)
[2016-10-31 14:31] LABS: BUN/Creatinine Ratio 6.25; Blood Urea Nitrogen 5 mg/dL (7-17); Calcium 7.9 mg/dL (8.4-10.2); Carbon Dioxide 25 mmol/L (22-30); Glucose 132 mg/dL (65-100)
[2016-10-31 14:32] LABS: Anion Gap 13 mmol/L; Potassium 3.2 mmol/L (3.6-5.0); Sodium 146 mmol/L (137-145)
[2016-10-31] MEDS: ZOFRAN IV PRN (17:51)
--- NOTE | 2016-10-31 20:19 | Gastroenterology Progress Note ---
Assessment and Plan c diff colitis - diarrhea improved, wbc normal yesterday. worsening abd cramping today, will obtain abd X ray. cont po vanc, will check cbc. Subjective Date of service: 10/31/16 Principal diagnosis: c diff colitis Interval history: pt c/o worsening abdominal cramping today. diarrhea has improved. tolerating po intake. Objective - Constitutional Vitals: Temp Pulse Resp BP Pulse Ox 98.4 F 73 16 128/74 100 10/31/16 17:00 10/31/16 17:00 10/31/16 17:00 10/31/16 17:00 10/31/16 17:00 General appearance: no acute distress - Respiratory Respiratory effort: normal Respiratory: bilateral: CTA - Cardiovascular Rhythm: regular Heart Sounds: Present: S1 & S2 - Extremities Extremities: No edema - Gastrointestinal General gastrointestinal: Present: soft, tender (+ lower quadrant ttp), normal bowel sounds - Neurologic Neurological: alert and oriented x3 - Psychiatric Psychiatric: appropriate mood/affect - Labs CBC & Chem 7: 10/30/16 06:58 10/31/16 13:11 Labs: Laboratory Results - last 24 hr 10/30/16 10/31/16 10/31/16 22:45 06:36 12:11 Sodium Potassium Chloride Carbon Dioxide Anion Gap BUN Creatinine Estimated GFR BUN/Creatinine Ratio Glucose POC Glucose 92 83 121 H Calcium 10/31/16 10/31/16 13:11 17:04 Sodium 146 H Potassium 3.2 L Chloride 111.0 H Carbon Dioxide 25 Anion Gap 13 BUN 5 L Creatinine 0.8 Estimated GFR > 60 BUN/Creatinine Ratio 6.25 Glucose 132 H POC Glucose 143 H Calcium 7.9 L
[2016-10-31 21:27] LABS: Basophils % (Auto) 1.3 % (0.0-1.8); Eosinophils % (Auto) 3.5 % (0.0-4.3); Hematocrit 36.8 % (30.3-42.9); Hemoglobin 12.4 gm/dl (10.1-14.3); Mean Corpuscular HGB Conc 34 % (30-34); Mean Corpuscular Hemoglobin 29 pg (28-32); Mean Corpuscular Volume 87 fl (79-97); Platelet Count 236 K/mm3 (140-440); Red Blood Count 4.22 M/mm3 (3.65-5.03); Red Cell Distribution Width 14.8 % (13.2-15.2); White Blood Count 4.5 K/mm3 (4.5-11.0)
[2016-11-01] MEDS: NOVOLOG SUB-Q SCH ×3 (00:05→14:10)
[2016-11-01] MEDS: FLAGYL 500 MG/100 ML 100 ML IV SCH ×2 (02:53→12:47)
[2016-11-01] MEDS: VANCOMYCIN PO SCH ×3 (05:22→12:03)
--- NOTE | 2016-11-01 08:32 | XRay Report ---
Supine and upright views of the abdomen: There is an unremarkable distribution of bowel gas. No soft tissue mass noted. No free air. Minimal air fluid layering in the right upper and lower quadrants. Cholecystectomy clips. No prior study for comparison. Impression: Minimal nonobstructed ileus pattern.
[2016-11-01 08:59] LABS: Anion Gap 14 mmol/L; Blood Urea Nitrogen 4 mg/dL (7-17); Calcium 7.9 mg/dL (8.4-10.2); Carbon Dioxide 23 mmol/L (22-30); Glucose 94 mg/dL (65-100); Potassium 3.6 mmol/L (3.6-5.0); Sodium 144 mmol/L (137-145)
[2016-11-01] MEDS: COZAAR PO SCH (12:02)
[2016-11-01] MEDS: PROTONIX PO SCH (12:03)
--- NOTE | 2016-11-01 12:04 | Discharge Summary ---
Providers - Providers Date of Admission: 10/29/16 00:38 Date of discharge: 11/01/16 Attending physician: LES MURPHY 10/29/16 09:03 Consult to Physician [CONS] Routine Consulting Provider: [facility] Reason For Exam: abdominal pain, diarrhea Place consult to:: GI Notified:: yes Was contact made?: Yes If yes, spoke with:: zeinab Primary care physician: HUYEN JASSO Hospitalization Condition: Stable Disposition: DISCHARGED TO HOME OR SELFCARE Time spent for discharge: 31 min Core Measure Documentation - Palliative Care Palliative Care/ Comfort Measures: Not Applicable - Core Measures Any of the following diagnoses?: none Exam - Constitutional Vitals: Temp Pulse Resp BP Pulse Ox 98.5 F 70 20 130/76 97 11/01/16 07:15 11/01/16 07:15 11/01/16 07:15 11/01/16 07:15 11/01/16 07:15 General appearance: Present: no acute distress, well-nourished - EENT Eyes: Present: PERRL, EOM intact - Neck Neck: Present: supple, normal ROM - Respiratory Respiratory effort: normal Respiratory: negative: rales, rhonchi, wheezing - Cardiovascular Rhythm: regular Heart Sounds: Present: S1 & S2 - Extremities Extremities: no ischemia, pulses intact, pulses symmetrical Peripheral Pulses: within normal limits - Abdominal General gastrointestinal: Present: soft, non-tender, non-distended, normal bowel sounds - Integumentary Integumentary: Present: clear, warm - Musculoskeletal Musculoskeletal: strength equal bilaterally - Psychiatric Psychiatric: appropriate mood/affect, cooperative - Neurologic Neurologic: CNII-XII intact, moves all extremities Plan Activity: no restrictions Diet: advance as tolerated Additional Instructions: Contact isolation/handwashing. Advance diet as tolerated Follow up with: HUYEN JASSO MD [Primary Care Provider] - 3-5 Days MARK POWERS MD [Staff Physician] - 7 Days Prescriptions: Ondansetron [Zofran TAB] 4 mg PO Q8HR PRN #21 tablet PRN Reason: Nausea Pantoprazole [Protonix TAB] 40 mg PO QDAY #14 tablet Vancomycin 250 mg PO Q6HR #48 oral.[id number]
[2016-11-01] MEDS: LOVENOX SUB-Q SCH (12:05)
[2016-11-01] MEDS: NACL 0.9% 1000 ML 1,000 ML IV SCH ×2 (12:46)
[2016-11-01 15:57] VITALS: BP 142/69
== END 2016-11-01 16:05 | disposition home or self-care (01) | DRG 872 ==
LOC: ED 15:42 → 3A 10-29 00:38
PROVIDERS: ADMIT Internal Medicine; ATTEND Internal Medicine
DX: A41.9 Sepsis, unspecified organism (principal); A04.7 Enterocolitis due to Clostridium difficile; E11.9 Type 2 diabetes mellitus without complications; I10 Essential (primary) hypertension; E87.6 Hypokalemia; Z88.0 Allergy status to penicillin; Z88.8 Allergy status to other drugs, medicaments and biological substances; Z90.49 Acquired absence of other specified parts of digestive tract
CPT/HCPCS: 36415; 74020; 74177; 80048; 80053; 81001; 82140; 82962; 83690; 83880; 85007; 85025; 85027; 87040; 87493; 96361; 96374; 96375; J1650; J2405; J3010; J3360; J3370; J7030; Q9967